=== PATIENT | male | born 1935 | race Caucasian/White ===

== ENCOUNTER 2016-05-25 20:06 | Inpatient (IN) ==
[2016-05-25] MEDS ORDERED: 0.9 % SODIUM CHLORIDE 1,000 ML IV ONE ×2 (20:17→21:32)
--- NOTE | 2016-05-25 20:21 | Emergency Department Note ---
Dizziness HPI - General Chief Complaint: Dizziness Stated Complaint: Dizziness Time Seen by Provider: 05/25/16 20:17 Source: patient Mode of arrival: ambulatory Limitations: no limitations - History of Present Illness HPI Narrative: This patient had a failed attempt at cardiac ablation for atrial fibrillation last week and was started on metoprolol. This evening he felt very dizzy and his heart rate was in the high 30s. he had some sort of electrical shock type sensation go up his left side including his chest that just lasted a few seconds. EKG Shows a junctional escape rhythm. MD complaint: lightheadedness Timing: sudden onset Description: near-syncope History of similar episodes: No History of trauma: No Severity: moderate Worsens with: position Associated symptoms: Reports: denies other symptoms - Related Data Home Medications Medication Instructions Recorded Confirmed flecainide 50 mg tablet 25 mg PO Q12H tab 10/02/15 05/25/16 Warfarin Sodium [Jantoven] 5 mg PO DAILY 05/17/16 05/25/16 Captopril [Capoten] 12.5 mg PO BID 05/25/16 05/25/16 Metoprolol Succinate [Toprol Xl] 25 mg PO DAILY 05/25/16 05/25/16 Omeprazole [PriLOSEC] 20 mg PO ACB 05/25/16 05/25/16 Previous Rx's Medication Instructions Recorded Captopril [Capoten] 12.5 mg PO TID #60 tablet 05/17/16 zolpidem 10 mg tablet 10 mg PO QHS PRN #90 tab 05/20/16 Allergies Allergy/AdvReac Type Severity Reaction Status Date / Time allopurinol Allergy Unknown Unknown Verified 02/27/16 09:53 ampicillin Allergy Unknown Unknown Verified 02/27/16 09:53 Penicillins Allergy Unknown Anaphylaxis Verified 02/27/16 09:53 sotalol Allergy Unknown Unknown Verified 02/27/16 09:53 tadalafil [From Cialis] Allergy Unknown Swelling Verified 02/27/16 09:53 of Lip/Tongue/Throat rivaroxaban [From Xarelto] AdvReac Severe hemoptysis Verified 02/27/16 09:53 bee stings Allergy Unknown Unknown Uncoded 02/27/16 09:53 Review of Systems Constitutional: Denies: fever Eyes: Denies: eye pain ENT ED: Denies: ear pain Cardiovascular: Denies: chest pain, palpitations Respiratory: Denies: cough, dyspnea Gastrointestinal: Denies: abdominal pain, nausea Genitourinary: Denies: urgency Musculoskeletal: Denies: back pain Integumentary: Denies: rash Neurological: Denies: headache Past Medical History - Past Medical History Medical history: Reports: atrial fibrillation, coronary artery disease, kidney stones, valvular heart disease, other (Gout. Macular degeneration. Nuclear sclerosis. Pneumonia.) Surgical history ED: Reports: non-contributory, orthopedic, other, vasectomy ( colonoscopy cardiac catheterization), other (cardiac ablation) Physical Exam - General Limitations: no limitations General appearance: alert - Head Head exam: atraumatic - Eye Eye exam: Present: normal appearance - ENT ENT exam: normal exam - Neck Neck exam: Present: normal inspection - Chest Chest inspection: Present: normal inspection - Respiratory Respiratory exam: Present: normal lung sounds bilaterally - Cardiovascular Cardiovascular exam: Present: regular rate, normal rhythm, normal heart sounds - Abdominal Exam Abdominal exam: Present: soft. Absent: distention, tenderness - Neurological Exam Neurological exam: Present: alert - Psychiatric Psychiatric exam: Present: normal affect - Skin Skin exam: Present: warm Course Vital Signs Temperature 97.8 F 05/25/16 20:08 Pulse Rate 38 L 05/25/16 20:08 Respiratory Rate 19 05/25/16 20:08 Blood Pressure 118/64 05/25/16 20:08 Pulse Oximetry (%) 99 05/25/16 20:08 Temperature 98.4 F 05/26/16 04:00 Pulse Rate 42 L 05/26/16 07:25 Respiratory Rate 16 05/26/16 07:25 Blood Pressure 110/64 05/26/16 05:00 Pulse Oximetry (%) 94 05/26/16 07:25 Dizziness - MDM Narrative Medical decision making narrative: Patient's troponin was negative twice and I discussed case with Dr. schafer the managed care manager in [place] and felt we could watch him here and hold his flecainide and metoprolol. Dr. Davies then admitted the patient to the hospital - Lab Data Lab results reviewed: Yes I reviewed the patient's lab results. Result diagrams: 05/26/16 02:00 05/26/16 02:00 Lab Results 05/25/16 05/25/16 05/25/16 Range/Units 20:24 20:24 20:24 WBC 9.8 (4.5-11.0) K/mcL RBC 4.28 L (4.50-5.90) M/mcL Hgb 14.6 (13.5-16.5) g/dL Hct 43.3 (41.0-55.0) % MCV 101.2 H (80.0-100.0) fL MCH 34.0 (26.0-34.0) pg MCHC 33.6 (31.0-36.0) g/dL RDW 13.7 (11.5-14.5) % Plt Count 223 (140-440) K/mcL MPV 8.1 (7.4-10.4) fL Gran % 62.2 (38.0-78.0) % Lymph % (Auto) 21.7 (15.5-49.0) % [place] % (Auto) 13.2 H (1.0-9.0) % Eos % (Auto) 2.3 (0.0-7.0) % Baso % (Auto) 0.6 (0.0-2.0) % Gran # 6.1 (1.8-8.0) K/mcL Lymph # 2.1 (1.5-4.8) K/mcL [place] # 1.3 H (0.1-0.9) K/mcL Eos # 0.2 (0.0-0.7) K/mcL Baso # 0.1 (0.0-0.3) K/mcL PT (11.9-14.5) sec INR (0.9-1.1) Sodium 137 (133-145) mmol/L Potassium 4.3 (3.3-5.1) mmol/L Chloride 97 (96-108) mmol/L Carbon Dioxide 26 (22-30) mmol/L Anion Gap 14.0 (8-16) BUN 33 H (8-23) mg/dl Creatinine 1.4 H (0.7-1.2) mg/dl GFR Calculation 47 Glucose 113 H (70-105) mg/dL Calcium 9.0 (8.6-10.4) mg/dl Total Bilirubin 0.4 (0.0-1.0) mg/dL AST 27 (0-37) U/l ALT 36 (0-40) U/l Alkaline Phosphatase 101 (39-117) U/L Troponin T < 0.01 (0-0.03) ng/ml Total Protein 6.7 (5.9-8.4) gm/dL Albumin 3.5 (3.2-5.2) gm/dL Globulin 3.2 (2.2-3.7) gm/dL Albumin/Globulin Ratio 1.1 (1.0-2.3) 05/25/16 05/25/16 Range/Units 20:24 22:28 WBC (4.5-11.0) K/mcL RBC (4.50-5.90) M/mcL Hgb (13.5-16.5) g/dL Hct (41.0-55.0) % MCV (80.0-100.0) fL MCH (26.0-34.0) pg MCHC (31.0-36.0) g/dL RDW (11.5-14.5) % Plt Count (140-440) K/mcL MPV (7.4-10.4) fL Gran % (38.0-78.0) % Lymph % (Auto) (15.5-49.0) % [place] % (Auto) (1.0-9.0) % Eos % (Auto) (0.0-7.0) % Baso % (Auto) (0.0-2.0) % Gran # (1.8-8.0) K/mcL Lymph # (1.5-4.8) K/mcL [place] # (0.1-0.9) K/mcL Eos # (0.0-0.7) K/mcL Baso # (0.0-0.3) K/mcL PT 20.7 H (11.9-14.5) sec INR 1.7 H (0.9-1.1) Sodium (133-145) mmol/L Potassium (3.3-5.1) mmol/L Chloride (96-108) mmol/L Carbon Dioxide (22-30) mmol/L Anion Gap (8-16) BUN (8-23) mg/dl Creatinine (0.7-1.2) mg/dl GFR Calculation Glucose (70-105) mg/dL Calcium (8.6-10.4) mg/dl Total Bilirubin (0.0-1.0) mg/dL AST (0-37) U/l ALT (0-40) U/l Alkaline Phosphatase (39-117) U/L Troponin T < 0.01 (0-0.03) ng/ml Total Protein (5.9-8.4) gm/dL Albumin (3.2-5.2) gm/dL Globulin (2.2-3.7) gm/dL Albumin/Globulin Ratio (1.0-2.3) Disposition Clinical Impression: Bradycardia Disposition: Xfer As Inpt ([facility]) Condition: Undetermined
--- NOTE | 2016-05-25 20:51 | XRay Report ---
HISTORY: Reason for Exam:dizzy FINDINGS: The lungs are clear. The heart size, pulmonary vascular structure, mediastinum and kevin are normal. There is a moderate dextroscoliotic curvature in the midthoracic spine. Distal end of the right clavicle has been surgically resected. There has been little change since 02/20/16. IMPRESSION: No acute abnormality Interpreted and Authenticated by: Marvin Day 05/25/16
[2016-05-25 21:05] LABS: Basophils # (Auto) 0.1 K/mcL (0.0-0.3); Basophils % (Auto) 0.6 % (0.0-2.0); Eosinophils # (Auto) 0.2 K/mcL (0.0-0.7); Eosinophils % (Auto) 2.3 % (0.0-7.0); Granulocytes % (Auto) 62.2 % (38.0-78.0); Lymphocytes # (Auto) 2.1 K/mcL (1.5-4.8); Lymphocytes % (Auto) 21.7 % (15.5-49.0); Mean Cell Volume 101.2 fL (80.0-100.0); Mean Corpuscular HGB Conc 33.6 g/dL (31.0-36.0); Monocytes # (Auto) 1.3 K/mcL (0.1-0.9); Monocytes % (Auto) 13.2 % (1.0-9.0); Platelet Count 223 K/mcL (140-440); RBC 4.28 M/mcL (4.50-5.90); Red Cell Distribution Width 13.7 % (11.5-14.5)
[2016-05-25 21:15] LABS: ALT/SGPT 36 U/l (0-40); Albumin 3.5 gm/dL (3.2-5.2); Albumin/Globulin Ratio 1.1 (1.0-2.3); Alkaline Phosphatase 101 U/L (39-117); Blood Urea Nitrogen 33 mg/dl (8-23)
[2016-05-26] MEDS ORDERED: 0.9 % SODIUM CHLORIDE 1,000 ML IV ONE
--- NOTE | 2016-05-26 01:09 | Internal Med History&Physical ---
Medical - H&P: HPI Patient information: Note initiated : 05/26/16 at 12:59 am Service Date, if different from initiated Date: [] Patient: Juan Sánchez 80 y/o M admitted on for Dizziness. Chief Complaint: [] Chief complaint: dizziness. History of present illness: Mr. Sánchez is a 80 year old male with h/o afib, recent ablation done by Dr darden in [place], and placed on metoprolol, presented to the hospital today after eeeling weak and tired since this evening. he was in his usual state of health, when he noticed a strange electric feeling go up from his left leg right up to his neck and head. When he got up he became very dizzy and nearly passed out. His condition did not improve and he therefore presented to the ER for eval In the ER he was noted to have significant bradycardia and hypotension, EKG was in junctional rhythm. lab neg, trop neg, x ray chest neg. He received fluids , and his BP improved, but he remained bradycardic. Dr Gilbert spoke with the extrusion die coordinator physician Dr Sánchez (oncall for Dr Darden who performed the procedure) for a possible transfer given the patients recent procedure and this new significant bradyarrhythmia. I am told that patient transfer was declined and it was advised that his medications be held and patient monitored. Patient was therefore admitted to the hospital for further management. the patient denies any chest pains, shortness of breath, does have orthostatic dizziness, but no syncope. 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 His Anti GBM antibody has been negative in past, presently he does not endorse any active hemoptysis. He did have some epistaxis last week for whch he was in the ER. INR today is 1.7 - Constitutional Constitutional: Present: fatigue. Absent: chills, fever(s), frequent falls, weight loss - EENT Eyes: Absent: loss of vision, pain, photophobia Nose, mouth and throat: Absent: bleeding gums, change in voice - Cardiovascular Cardiovascular: Present: lightheadedness, slow heart rate. Absent: chest pain, chest pain at rest, chest pain with activity, claudication, pedal edema - Respiratory Respiratory: Absent: cough, dyspnea, hemoptysis, wheezing - Gastrointestinal Gastrointestinal: Absent: abdominal pain, constipation, early satiety, nausea, tenesmus, vomiting - Genitourinary Genitourinary: Absent: hematuria, urinary frequency, urinary hesitancy, urinary incontinence, urinary urgency - Musculoskeletal Musculoskeletal: Absent: back pain, joint swelling, neck pain - Integumentary Integumentary: Absent: bleeding lesions, wounds, jaundice - Neurological Neurological: Absent: focal weakness, frequent falls, sensory deficit, syncope, tingling, tremor(s), vertigo - Psychiatric Psychiatric: Absent: anhedonia, anxiety, confusion - Endocrine Endocrine: Absent: polydipsia, polyphagia, polyuria - Hematologic/Lymphatic Hematologic/Lymphatic: Present: easy bleeding, easy bruising - Allergic/Immunologic Allergic/Immunologic: Absent: uticaria, wheezing Medical - H&P: PMH Medical history: Medical History Epistaxis (Acute) Aortic valve insufficiency (Chronic) Atrial fibrillation (Chronic) Back pain (Chronic) Blepharitis (Chronic) CAD (coronary artery disease) (Chronic) Cervical radiculopathy (Chronic) Edema (Chronic 07/17/14) Elevated blood pressure reading without diagnosis of hypertension (Chronic) Gout (Chronic) Hemoptysis (Chronic) History of kidney stones (Chronic) Lymphedema (Chronic) Macular degeneration (Chronic) Nuclear sclerosis (Chronic) Obstructive sleep apnea (Chronic) Pain in right shoulder (Chronic) Paroxysmal atrial fibrillation (Chronic) Pneumonia (Chronic) Pneumonitis (Chronic) Premature ventricular contractions (Chronic) Venous stasis (Chronic 07/17/14) Surgical history: Past Surgical History History of back surgery (Chronic) History of cardiac catheterization (Chronic 11/25/12) History of cardioversion (Chronic) History of colonoscopy (Chronic) History of electrophysiologic study (Chronic 11/16/13) History of eye surgery (Chronic) History of lithotripsy (Chronic) History of shoulder surgery (Chronic) History of vasectomy (Chronic) S/P foot surgery, right (Chronic) Family history: reviewed and not pertinent Pertinent family history: Father h/o [place], [place] cancer? Social history: etoh daily 0-2 drinks no smoker . Medical - H&P: Meds Home Medications Medication Instructions Recorded Confirmed Type flecainide 50 mg tablet 25 mg PO Q12H tab 05/24/16 01/15/17 History Warfarin Sodium [Jantoven] 5 mg PO DAILY 05/17/16 05/25/16 History Captopril [Capoten] 12.5 mg PO BID 05/25/16 05/25/16 History Metoprolol Succinate [Toprol Xl] 25 mg PO DAILY 05/25/16 05/25/16 History Omeprazole [PriLOSEC] 20 mg PO ACB 05/25/16 05/25/16 History Allergies Allergy/AdvReac Type Severity Reaction Status Date / Time allopurinol Allergy Unknown Unknown Verified 02/27/16 09:53 ampicillin Allergy Unknown Unknown Verified 02/27/16 09:53 Penicillins Allergy Unknown Anaphylaxis Verified 02/27/16 09:53 sotalol Allergy Unknown Unknown Verified 02/27/16 09:53 tadalafil [From Cialis] Allergy Unknown Swelling Verified 02/27/16 09:53 of Lip/Tongue/Throat rivaroxaban [From Xarelto] AdvReac Severe hemoptysis Verified 02/27/16 09:53 bee stings Allergy Unknown Unknown Uncoded 02/27/16 09:53 Medical - H&P: Exam - Constitutional Vitals: Temp Pulse Resp BP Pulse Ox 97.8 F 39 L 19 104/59 96 05/25/16 20:08 05/26/16 00:04 05/26/16 00:04 05/26/16 00:04 05/26/16 00:04 General appearance: average body habitus, cooperative, no acute distress - Head Head exam: Present: atraumatic, normal inspection - Eye Eye exam: Present: EOMI, PERRL. Absent: conjunctival injection, periorbital swelling, periorbital tenderness, scleral icterus - ENT ENT exam: Present: mucous membranes moist - Neck Neck exam: Present: normal inspection - Respiratory Respiratory exam: Present: normal respiratory exam. Absent: accessory muscle use, rhonchi, stridor, wheezes - Cardiovascular Cardiovascular exam: Present: normal rate and rhythm, +S1, +S2 - GI/Abdominal GI/Abdominal exam: Present: normal bowel sounds, soft. Absent: rebound, rigid, tenderness - Extremities Exam Extremities exam: Present: Foot pink and warm, neurovascular intact. Absent: pedal edema - Neurological Exam Neurological exam: Present: alert, CN II-XII intact, oriented X3. Absent: motor sensory deficit - Psychiatric Psychiatric exam: Absent: agitated, anxious, depressed - Skin Skin exam: Present: normal color, warm. Absent: rash, urticaria, vesicles Medical - H&P: Reslt - Labs CBC & Chem 7: 05/25/16 20:24 05/25/16 20:24 Labs: Short CBC 05/25/16 Range/Units 20:24 WBC 9.8 (4.5-11.0) K/mcL Hgb 14.6 (13.5-16.5) g/dL Hct 43.3 (41.0-55.0) % Plt Count 223 (140-440) K/mcL BMP 05/25/16 20:24 Sodium 137 Potassium 4.3 Chloride 97 Carbon Dioxide 26 BUN 33 H Creatinine 1.4 H Glucose 113 H Calcium 9.0 Cardiac Enzymes 05/25/16 05/25/16 Range/Units 20:24 22:28 Troponin T < 0.01 < 0.01 (0-0.03) ng/ml Liver Function 05/25/16 Range/Units 20:24 Total Bilirubin 0.4 (0.0-1.0) mg/dL AST 27 (0-37) U/l ALT 36 (0-40) U/l Alkaline Phosphatase 101 (39-117) U/L Albumin 3.5 (3.2-5.2) gm/dL - EKG Data -: EKG Reviewed by Myself Medical - H&P: A/P (1) Symptomatic bradycardia Current visit: Yes Status: Acute (2) Junctional escape rhythm Current visit: Yes Status: Acute - Narrative A/P Narrative: the patient presents to the ER after having an ablation procedure He is now in juctional rhythm, with HR ranging from 35-45, with low bp and orthostatic dizziness. The patient has received fluids, his medication flecainde and metoprolol have been held. It seems that metoprolol was added after the last ablation procedure. AT this time, we will monitor the patient on Telemetery, Will try to get in touch with his primary lens maker Dr darden to see if he has any other suggestions or plans for the patient. INR was subtherapeutic, Warfarin dose management per pharmacy DVT sq hep given subtherapeutic INR DIet Cardiac
[2016-05-26] MEDS ORDERED: ONDANSETRON 4 MG/2 ML VIAL ONE (01:45)
[2016-05-26] MEDS ORDERED: 0.9 % SODIUM CHLORIDE 500 ML IV ONE (01:50)
[2016-05-26] MEDS ORDERED: methylPREDNISolone SOD SUCC 125 MG/2 ML VIAL ONE (01:51)
[2016-05-26] MEDS ORDERED: HYDROCORTISONE SOD SUCC 100 MG VIAL IV ONE ×2 (01:55→01:58)
[2016-05-26] MEDS ORDERED: GLUCAGON,HUMAN RECOMBINANT 1 MG VIAL IV ONE (01:56)
[2016-05-26] MEDS ORDERED: ONDANSETRON 4 MG/2 ML VIAL IV ONE (01:57)
[2016-05-26] MEDS ORDERED: ACETAMINOPHEN 325 MG TABLET PO PRN (02:01)
[2016-05-26] MEDS ORDERED: NALOXONE HCL 0.4 MG/ML VIAL IV PRN (02:01)
[2016-05-26] MEDS ORDERED: ONDANSETRON 4 MG/2 ML VIAL IV PRN (02:01)
[2016-05-26 02:33] LABS: Basophils # (Auto) 0 K/mcL (0.0-0.3); Basophils % (Auto) 0.4 % (0.0-2.0); Eosinophils # (Auto) 0.2 K/mcL (0.0-0.7); Eosinophils % (Auto) 2.2 % (0.0-7.0); Granulocytes % (Auto) 63.6 % (38.0-78.0); Lymphocytes # (Auto) 2.2 K/mcL (1.5-4.8); Lymphocytes % (Auto) 22.9 % (15.5-49.0); Mean Cell Volume 103.3 fL (80.0-100.0); Mean Corpuscular HGB Conc 33.3 g/dL (31.0-36.0); Mean Corpuscular Hemoglobin 34.4 pg (26.0-34.0); Monocytes # (Auto) 1.1 K/mcL (0.1-0.9); Monocytes % (Auto) 10.9 % (1.0-9.0); Platelet Count 198 K/mcL (140-440); RBC 3.71 M/mcL (4.50-5.90); Red Cell Distribution Width 14.6 % (11.5-14.5)
[2016-05-26 03:55] LABS: ALT/SGPT 97 U/l (0-40); Albumin 3.2 gm/dL (3.2-5.2); Albumin/Globulin Ratio 1.3 (1.0-2.3); Alkaline Phosphatase 94 U/L (39-117); Bilirubin,Direct < 0.2 mg/dL (0.0-0.3); Blood Urea Nitrogen 33 mg/dl (8-23); Gamma Glutamyl Transpeptidase 114 U/L (8-61); Magnesium 2.1 mg/dL (1.6-2.5); Phosphorous 2.5 mg/dL (2.7-4.5); Uric Acid 7.7 mg/dL (2.5-8.0)
[2016-05-26] MEDS ORDERED: ATROPINE SULFATE 1 MG/10 ML SYRINGE IV ONE ×2 (04:00→12:06)
[2016-05-26] MEDS ORDERED: HYDROCORTISONE SOD SUCC 100 MG VIAL IV SCH (06:00)
[2016-05-26] MEDS ORDERED: PANTOPRAZOLE 40 MG TABLET PO SCH (07:30)
[2016-05-26] MEDS ORDERED: FUROSEMIDE 20 MG/2 ML VIAL IV ONE (07:46)
[2016-05-26] MEDS ORDERED: ATROPINE SULFATE 1 MG/ML VIAL IV SCH (08:00)
[2016-05-26] MEDS ORDERED: 0.9 % SODIUM CHLORIDE 250 ML IV SCH (08:15)
[2016-05-26] MEDS ORDERED: DOPamine 400 MG in PREMIX 1 BAG IV SCH (08:15)
--- NOTE | 2016-05-26 08:43 | XRay Report ---
CLINICAL INFORMATION: Dyspnea COMPARISON: 05/25/2016 FINDINGS: Marked cardiomegaly is unchanged. Mediastinum is slightly widened. Pulmonary vessels are now mildly distended. Moderate size right and small/moderate left basilar infiltrates have developed. There are small bilateral pleural effusions. IMPRESSION: New moderate right and smaller left basilar infiltrates and effusions. Consider aspiration. Mild underlying recurrent CHF or volume overload Interpreted and Authenticated by: Juan Ramirez 05/26/16
--- NOTE | 2016-05-26 08:47 | Discharge Summary ---
Medical - DS: Prov Patient information: Note initiated : 05/26/16 at 8:32 am Service Date, if different from initiated Date: [] Patient: Juan Sánchez 80 y/o M admitted on 05/26/16 for Dizziness. Chief Complaint: [] Date of admission: 05/26/16 01:53 Discharge date: 05/26/16 Primary care physician: [f_Reg Prim Care Provider] Admitting clinician: Renate Davies Discharging clinician: Renate Davies Medical - DS: Meds - Discharge Medications Active and Home Medications: Home Medications Captopril [Capoten] 12.5 mg PO BID 05/25/16 [History Confirmed 05/25/16 Last Taken Unknown] Metoprolol Succinate [Toprol Xl] 25 mg PO DAILY 05/25/16 [History Confirmed Last Taken 05/25/16] Omeprazole [PriLOSEC] 20 mg PO ACB 05/25/16 [History Confirmed 05/25/16 Last Taken 05/25/16] Active Medications Acetaminophen (Tylenol) 650 mg PO Q6HP PRN PRN Reason: PAIN/FEVER > 101 Heparin Sodium (Porcine) (Heparin) 5,000 unit SQ Q12 [facility] Hydrocortisone Sodium Succinate (Solu-Cortef) 50 mg IV Q8 [facility] Last Admin: 05/26/16 07:15 Dose: 50 mg Dopamine HCl/Dextrose 400 mg/ (Premix) 250 mls @ 19.48 mls/hr IV .[id number] [facility]; 5 MCG/KG/MIN PRN Reason: Protocol Sodium Chloride (Sodium Chloride 0.9%) 250 mls @ 20 mls/hr IV .[id number] [facility] Naloxone HCl (Narcan) 0.1 mg IV Q2MIN PRN PRN Reason: Opiate Reversal Ondansetron HCl (Zofran) 4 mg IV Q4HP PRN PRN Reason: Nausea And Vomiting Pantoprazole Sodium (Protonix) 40 mg PO QAMAC [facility] Last Admin: 05/26/16 07:27 Dose: 40 mg Warfarin Sodium (Coumadin Per Pharmacy) 1 order PO DAILY@1400 [facility] Medical - DS: Hosp Hospital course: Mr. Sánchez is a 80 year old male who presented to the hospital yesterday evening with sudden onset dizziness and weakness. In the ER he was noted to be in junctional rhythm with HR around 40, His CXR was clear, Labs unremarkable, and his Troponin was negative. The patient has had a recent ablation procedure done in [facility], and was started on low dose metoprolol. The patient had taken the XL metoprolol yesterday morning. Given that the patient was symptomatic with bradycardia, the case was discussed with Dr Sánchez, the commercial construction project manager at [facility], who declined to accept the patient noting that the HR is low due to metoprolol and the patient would respond once metoprolol wore off. Patient was fluid resuscitated to help keep maintain the blood pressure. The patient was admitted to the hospital for further management. During transfer from the ER to the ICU the patient had one episode of presyncope, his HR had dropped to mid 30's and then he came back to 40's. Given that the thought process was that this was side effect of metoprolol overdose, we gave the patient 3mg of glucagon to see if this would reverse the effects, the patient had no response to same. The patient also has h/o alveolar hemorrhage in the past needing high dose of steroids, the patient was recently treated with a short course of steroids, Patient therefore received 100mg hydrocortisone to r/o adrenal insufficiency. patient did not respond to this either and maintained his HR in 40's. His HR dropped on a couple of occasions in the mid to high 20's but came back again. His mental status remained ok, and BP was normal. I called Dr Sánchez again, who was still not convinced regarding the patient needing the transfer and advised us to use atropine to help with bradycardia, supposedly wanting to wait 24 hrs to help clear the effects of low dose metoprolol. The patient did respond to atropine and needed 2 doses to maintain his HR > 40. The patient however continued to decline and his oxygen requirement increased. A repeat X ray done showed diffuse bilateral infiltrates. patient was also having cough with blood tinged sputum. Patient BP was stable, But his HR kept dropping below 40, we started the patient on dopamine drip at 5mcg, with good response in his HR, 20mg of lasix is given to help with pulmonary edema. I discussed the case this his primary commercial construction project manager Dr Darden, who reviewed the history and accepted the patient for transfer. patient HR Improved to 60-70 with dopamine, and bp also improved, dose of dopamine cut down to 2.5mcg given high bp, and good heart rate. The patient has h/o alveolar hemorrhage, consideration to be given to that as a differential diagnosis for pulmonary infiltrates, At this time the clinical picture is in favor or bradyarrhythmia as the etiology of pulm edema. Discharge diagnosis: Bradycardia, Heart failure. - Time Spent with Patient Total time spent providing and/or coordinating discharge services: Greater than 30 minutes Medical - DS: Exam - Constitutional Vitals: Vital Signs Temp Pulse Pulse Resp BP BP Pulse Ox 05/26/16 07:25 42 L 16 94 05/26/16 07:24 94 05/26/16 05:00 45 L 15 110/64 95 05/26/16 04:00 98.4 F 18 105/66 105 H 05/26/16 03:30 18 110/52 95 05/26/16 03:05 98.2 F 36 L 20 108/56 91 05/26/16 03:00 47 L 22 99/59 95 05/26/16 02:48 20 91 05/26/16 02:45 18 118/55 95 05/26/16 02:30 40 L 14 103/65 92 05/26/16 02:15 40 L 109/68 95 05/26/16 02:00 40 L 16 134/70 Intake and Output 05/25/16 05/26/16 05/26/16 21:59 05:59 13:59 Intake Total 0 / 95 Balance 0 / 95 Intake: Oral 0 / 0 Other: Weight 229 lb 1.6 oz 229 lb 1.6 oz Patient Weight 05/27/16 05:59 Weight 229 lb 1.6 oz - Head Head exam: Present: atraumatic, normal inspection, normocephalic - Eye Eye exam: Present: conjunctival injection. Absent: PERRL, scleral icterus - ENT ENT exam: Present: mucous membranes dry - Respiratory Respiratory exam: Present: normal respiratory exam. Absent: accessory muscle use Additional comments: jacob crackles, no wheezing or rhonchi. able to speak full sentences but very tired. - Cardiovascular Cardiovascular exam: Present: normal rate and rhythm, +S1, +S2 Additional comments: bradyarrythmia throught the night, but improved with dopamine. - GI/Abdominal GI/Abdominal exam: Present: normal bowel sounds, soft - Neurological Exam Neurological exam: Present: alert, CN II-XII intact, oriented X3. Absent: motor sensory deficit Medical - DS: Data Labs on day of discharge: Labs from last 24 hours 05/26/16 05/26/16 05/26/16 06:15 02:00 02:00 WBC RBC Hgb Hct MCV MCH MCHC RDW Plt Count MPV Gran % Lymph % (Auto) [place] % (Auto) Eos % (Auto) Baso % (Auto) Gran # Lymph # [place] # Eos # Baso # PT 22.3 H INR 1.9 H Sodium Potassium Chloride Carbon Dioxide Anion Gap BUN Creatinine GFR Calculation Glucose Uric Acid Calcium Phosphorus Magnesium Total Bilirubin Direct Bilirubin GGT AST ALT Alkaline Phosphatase Lactate Dehydrogenase Troponin T < 0.01 NT-Pro-B Natriuret Pep 507.7 H Total Protein Albumin Globulin Albumin/Globulin Ratio Triglycerides 05/26/16 05/26/16 02:00 02:00 WBC 9.7 RBC 3.71 L Hgb 12.7 L Hct 38.3 L MCV 103.3 H MCH 34.4 H MCHC 33.3 RDW 14.6 H Plt Count 198 MPV 7.8 Gran % 63.6 Lymph % (Auto) 22.9 [place] % (Auto) 10.9 H Eos % (Auto) 2.2 Baso % (Auto) 0.4 Gran # 6.1 Lymph # 2.2 Schley # 1.1 H Eos # 0.2 Baso # 0 PT INR Sodium 139 Potassium 4.5 Chloride 104 Carbon Dioxide 21 L Anion Gap 14.0 BUN 33 H Creatinine 1.3 H GFR Calculation 52 Glucose 122 H Uric Acid 7.7 Calcium 8.2 L Phosphorus 2.5 L Magnesium 2.1 Total Bilirubin 0.4 Direct Bilirubin < 0.2 GGT 114 H AST 92 H ALT 97 H Alkaline Phosphatase 94 Lactate Dehydrogenase 252 H Troponin T NT-Pro-B Natriuret Pep Total Protein 5.6 L Albumin 3.2 Globulin 2.4 Albumin/Globulin Ratio 1.3 Triglycerides 115 Medical - DS: A/P - Patient/Caregiver Discharge Instructions Activity: increase activity as tolerated Diet: Cardiac - Problem Maintenance (1) Symptomatic bradycardia Status: Acute (2) Junctional escape rhythm Status: Acute - Follow up Plan Follow up with: Laith Bennett PA-C [Primary Care Provider] - Disposition: [facility] Prognosis: Critical Rehab Potential: Fair I certify that the patient requires SNF services: No Overall status at discharge: patient is not back to baseline Medical - DS: Qual - VTE Deep Vein Thrombosis/Pulmonary Embolism Present on Admission: No
[2016-05-26] MEDS ORDERED: HEPARIN 5,000 UNIT/ML VIAL SQ SCH (09:00)
[2016-05-26] MEDS ORDERED: WARFARIN 5 MG TABLET PO SCH (14:00)
--- NOTE | 2016-05-27 09:14 | Echocardiogram Report ---
ECHOCARDIOGRAM: 2-D and M-mode echocardiography with cardiac Doppler and color flow imaging were performed with a [employer] A[employer]io MX. INDICATION: Bradycardia. Both atria appeared enlarged, the RA mildly so, the LA borderline. RV and LV cavity size appeared normal, as did LV wall thickness and systolic performance. Estimated ejection fraction is 55 percent. Aortic root diameter appeared normal. The aortic valve appeared trileaflet and normal for age. There was no evidence for aortic stenosis by Doppler interrogration. Aortic regurgitation, probably mild to moderate (1-2+) was demonstrated. The mitral and tricuspid valves appeared unremarkable. No more than trivial mitral regurgitation was noted. Doppler interrogration of LV inflow disclosed normal 'e' wave dominance and normal early diastolic deceleration time. Pulmonary venous interrogation disclosed 'd' wave dominance suggesting elevated pulmonary wedge pressure. The pulmonic valve was not well visualized and could not be well interrogated. Tricuspid regurgitation, probably moderate (2+), was noted. No intracardiac shunting was appreciated. There was no evidence for pericardial effusion. The IVC was dilated and did not vary with respiratory cycle, indicating raised CVP. Calculated estimate of PA systolic pressure is severely elevated at 70 mmHg. Junctional bradycardia, rate 40, was present. CONCLUSION: Aortic regurgitation, probably mild to moderate (1-2+). Borderline LA enlargement/elevated pulmonary wedge pressure. Severe pulmonary hypertension/mild RA enlargement/raised CVP. Junctional bradycardia, rate 40. (See accompanying M-mode and Doppler reports for quantitation.) ECHOCARDIOGRAPHY M-MODE CALCULATIONS: HT: 71'' WT: 229 BSA: 2.23 m2 NORMALS AORTA: AORTIC ROOT 3.3 2.0-3.7 cm LEFT ATRIUM 4.0 1.9-4.0 cm MITRAL VALVE: EXCURSION 2.1 1.9-2.7 cm EPSS 0.2 <0.5 cm LT VENTRICLE: LVID (ED) 4.5 3.5-5.7 cm LVID (ES) 3.0 SEPTAL THICKNESS 1.0 0.6-1.1 cm SEPTAL EXCURSION 0.4 0.3-0.8 cm LVPW THICKNESS 1.1 0.6-1.1 cm LVPW EXCURSION 1.1 0.9-1.4 cm MINOR AXIS FS 33 25%-40% RT VENTRICLE: RVID (ED) 2.4 0.9-2.6 cm(up to 3cm if LLD) QUALITATIVE DOPPLER FLOW STUDIES MITRAL VALVE MR, probably trivial. AORTIC VALVE AR, probably [id number] (1-2+). TRICUSPID VALVE TR, probably moderate (2+). PULMONIC VALVE -- QUANTITATIVE DOPPLER FLOW STUDIES SAMPLE SITES VELOCITIES PEAK PRESSURE VALVE AREA and/or VALVE WINDOW (PEAK,M/SEC) DROP (GRADIENT) PRESSURE HALF-TIME MV (Diastole) 0.9 (E) 0.7 (A) MV (Systole) 3.5 AO (Diastole) 3.5 680 msec AO (Systole) 1.2 TV (Systole) 3.5 PV (Systole) -- PV (Diastole) -- Amended 05/27/16 aris CONTRERASG:[email or web address] Job ID: [id number] Doc ID: [id number] Jamaal Katz MD
== END 2016-05-26 10:10 | disposition short-term general hospital (02) | DRG 310 ==
LOC: ICU 20:06 → ED 20:06 → ICU 05-26 01:15
PROVIDERS: ADMIT Internal Medicine; ATTEND Internal Medicine